=== PATIENT | female | born 1975 | race Two or more races ===

== ENCOUNTER 2017-12-04 15:24 | Outpatient (CLI) | END 2017-12-04 15:25 | disposition home or self-care (01) | LOC: LAB 15:24 | PROVIDERS: ATTEND Family Medicine | DX: Z00.01 Encounter for general adult medical examination with abnormal findings (principal); M54.9 Dorsalgia, unspecified; R10.84 Generalized abdominal pain | CPT/HCPCS: 36415; 80053; 80061; 81001; 82150; 83690; 84436; 84443; 84480; 84550; 85027 ==

== ENCOUNTER 2018-05-19 09:13 | Outpatient (CLI) | END 2018-05-19 09:30 | disposition short-term general hospital (02) | LOC: AMBL 09:13 | PROVIDERS: ATTEND Internal Medicine | DX: R56.9 Unspecified convulsions (principal); R40.20 Unspecified coma; Z98.890 Other specified postprocedural states ==

== ENCOUNTER 2018-11-12 11:29 | Outpatient (CLI) | END 2018-11-12 11:30 | disposition home or self-care (01) | LOC: LAB 11:29 | PROVIDERS: ATTEND Family Medicine | DX: M25.561 Pain in right knee (principal); M54.9 Dorsalgia, unspecified; Z00.00 Encounter for general adult medical examination without abnormal findings | CPT/HCPCS: 36415; 80053; 80061; 84443; 85025; 85027 ==